=== PATIENT | male | born 1995 | race Caucasian/White ===

== ENCOUNTER 2017-10-29 12:33 | Emergency (ER) | payer OTHER ==
[2017-10-29] MEDS ORDERED: Ondansetron 4 MG/2 ML SDV IVPUSH ONE ×2 (12:54→13:58)
[2017-10-29] MEDS ORDERED: Sodium Chloride 0.9% 2.5 ML Syringe FLUSH PRN (12:54)
[2017-10-29] MEDS ORDERED: Morphine 2 MG/ML Syringe IVPUSH ONE ×3 (12:54→14:02)
[2017-10-29] MEDS ORDERED: Sodium Chloride 0.9% 10 ML Syringe FLUSH PRN (12:54)
--- NOTE | 2017-10-29 13:00 | EDM.PDOC ---
ED HPI GENERAL MEDICAL PROBLEM - General Chief Complaint: ENT Problem Stated Complaint: JAW PAIN Time Seen by Provider: 10/29/17 12:41 Source of Information: Reports: Patient History Limitations: Reports: No Limitations - History of Present Illness INITIAL COMMENTS - FREE TEXT/NARRATIVE: History of present illness: []Patient looked in the snow on October 27 in his left jaw when his mouth was open. He has not been able to open his mouth since. He has had surgery on the left jaw with plate and screws placed in the past. He denies any loss of consciousness, neck pain or any other injuries. Review of systems: As per history of present illness and below otherwise all systems reviewed and negative. Past medical history: As per history of present illness and as reviewed below otherwise noncontributory. Surgical history: As per history of present illness and as reviewed below otherwise noncontributory. Social history: No reported history of drug or alcohol abuse. Family history: As per history of present illness and as reviewed below otherwise noncontributory. Physical exam: General: Well developed, well nourished in NAD HEENT: Atraumatic, patient has a scar over his left cheek and swelling in this area he is unable to open his mouth fully, pupils reactive, negative for conjunctival pallor or scleral icterus, mucous membranes moist, throat clear, neck supple, nontender, trachea midline. Lungs: Clear to auscultation, breath sounds equal bilaterally, chest nontender. Heart: S1S2, regular, negative for clicks, rubs, or JVD. Abdomen: Soft, nondistended, nontender. Negative for masses or hepatosplenomegaly. Negative for costovertebral tenderness. Pelvis: Stable nontender. Genitourinary: Deferred. Rectal: Deferred. Extremities: Small abrasion on right proximal forearm, negative for cords or calf pain. Neurovascular unremarkable. Neuro: Awake, alert, oriented. Cranial nerves II through XII unremarkable. Cerebellum unremarkable. Motor and sensory unremarkable throughout. Exam nonfocal. Diagnostics: []CT shows upper and lower left mandibular fractures Therapeutics: [] Impression: []Mandibular fracture Plan: []Follow-up with Dr. Tim Falcon at [facility] Tomorrow at noon, plan to stay overnight and surgery will be scheduled for Monday. Amoxicillin 500 mg 3 times a day for one week, Peridex mouth rinse 3-4 times a day, saltwater rinse after meals. Definitive disposition and diagnosis as appropriate pending reevaluation and review of above. Left jaw Pain Score (Numeric/FACES): 8 - Related Data Allergies Allergy/AdvReac Type Severity Reaction Status Date / Time No Known Allergies Allergy Verified 10/29/17 13:03 Home Meds: Home Meds Amoxicillin 500 mg PO TID #21 capsule 10/29/17 [Rx] Chlorhexidine Gluconate [Peridex 0.12% Rinse] 15 ml .XX TID #500 cup 10/29/17 [ Rx] traMADol HCl [Tramadol HCl] 50 mg PO Q6H PRN #16 tablet 10/29/17 [Rx] ED ROS GENERAL - Review of Systems Review Of Systems: See Below (See history of present illness) ED EXAM, HEAD INJURY - Physical Exam Exam: See Below (See history of present illness) Course - Vital Signs Last Recorded V/S: Last Vital Signs Temp 98.0 F 10/29/17 13:04 Pulse 98 10/29/17 13:04 Resp 20 10/29/17 13:04 BP 154/94 H 10/29/17 13:04 Pulse Ox 98 10/29/17 13:04 - Orders/Labs/Meds Orders: Active Orders 24 hr Category Date Time Status Max Facial Sinus wo Cont [CT] Stat Exams 10/29/17 12:52 Taken Sodium Chloride 0.9% [Normal Saline] 1,000 ml Med 10/29/17 13:58 Active IV .Bolus Sodium Chloride 0.9% [Saline Flush] Med 10/29/17 12:54 Active 10 ml FLUSH ASDIRECTED PRN Sodium Chloride 0.9% [Saline Flush] Med 10/29/17 12:54 Active 2.5 ml FLUSH ASDIRECTED PRN ceFAZolin [Ancef] 1 gm Med 10/29/17 14:28 Ordered Premix Bag 1 bag IV ONETIME Saline Lock Insert [OM.PC] Stat Oth 10/29/17 12:54 Ordered Medication Orders Sodium Chloride (Normal Saline) 1,000 mls @ 999 mls/hr IV .Bolus ONE Stop: 10/29/17 14:58 Last Admin: 10/29/17 14:14 Dose: 999 mls/hr Cefazolin Sodium/Dextrose 1 gm (/ Premix) 50 mls @ 100 mls/hr IV ONETIME ONE Stop: 10/29/17 14:57 Last Admin: 10/29/17 14:35 Dose: 100 mls/hr Sodium Chloride (Saline Flush) 10 ml FLUSH ASDIRECTED PRN PRN Reason: Keep Vein Open Sodium Chloride (Saline Flush) 2.5 ml FLUSH ASDIRECTED PRN PRN Reason: Keep Vein Open Meds: Medications Generic Name Dose Route Start Last Admin Trade Name Freq PRN Reason Stop Dose Admin Sodium Chloride 1,000 mls @ 999 mls/hr 10/29/17 13:58 10/29/17 14:14 Normal Saline IV 10/29/17 14:58 999 mls/hr .Bolus ONE Administration Cefazolin Sodium/Dextrose 1 gm 50 mls @ 100 mls/hr 10/29/17 14:28 10/29/17 14 :35 / Premix IV 10/29/17 14:57 100 mls/hr ONETIME ONE Administration Sodium Chloride 10 ml 10/29/17 12:54 Saline Flush FLUSH ASDIRECTED PRN Keep Vein Open Sodium Chloride 2.5 ml 10/29/17 12:54 Saline Flush FLUSH ASDIRECTED PRN Keep Vein Open Discontinued Medications Generic Name Dose Route Start Last Admin Trade Name Freq PRN Reason Stop Dose Admin Diazepam 2.5 mg 10/29/17 12:54 10/29/17 13:01 Valium IV 10/29/17 12:55 2.5 mg ONETIME ONE Administration Morphine Sulfate 2 mg 10/29/17 12:54 10/29/17 13:01 Morphine IVPUSH 10/29/17 12:55 2 mg ONETIME ONE Administration Morphine Sulfate 2 mg 10/29/17 13:58 10/29/17 14:06 Morphine IVPUSH 10/29/17 13:59 Not Given ONETIME ONE Morphine Sulfate 2 mg 10/29/17 14:02 10/29/17 14:06 Morphine IVPUSH 10/29/17 14:03 Not Given ONETIME ONE Morphine Sulfate 2 mg 10/29/17 14:15 10/29/17 14:12 Morphine IVPUSH 10/29/17 14:16 2 mg ONETIME ONE Administration Ondansetron HCl 4 mg 10/29/17 12:54 10/29/17 13:01 Zofran IVPUSH 10/29/17 12:55 4 mg ONETIME ONE Administration Ondansetron HCl 4 mg 10/29/17 13:58 10/29/17 14:10 Zofran IVPUSH 10/29/17 13:59 4 mg ONETIME ONE Administration Departure - Departure Time of Disposition: 14:31 Disposition: Home, Self-Care 01 Condition: Good Clinical Impression: Mandible fracture Qualifiers: Encounter type: initial encounter Fracture type: closed Mandible location: body Laterality: left Qualified Code(s): S02.602A - Fracture of unspecified part of body of left mandible, initial encounter for closed fracture - Discharge Information Prescriptions: Amoxicillin 500 mg PO TID #21 capsule Chlorhexidine Gluconate [Peridex 0.12% Rinse] 15 ml .XX TID #500 cup traMADol HCl [Tramadol HCl] 50 mg PO Q6H PRN #16 tablet PRN Reason: Pain Referrals: PCP,None [Primary Care Provider] - Forms: ED Department Discharge Additional Instructions: The following information is given to patients seen in the emergency department who are being discharged to home. This information is to outline your options for follow-up care. We provide all patients seen in our emergency department with a follow-up referral. The need for follow-up, as well as the timing and circumstances, are variable depending upon the specifics of your emergency department visit. If you don't have a primary care physician on staff, we will provide you with a referral. We always advise you to contact your personal physician following an emergency department visit to inform them of the circumstance of the visit and for follow-up with them and/or the need for any referrals to a consulting specialist. The emergency department will also refer you to a specialist when appropriate. This referral assures that you have the opportunity for follow-up care with a specialist. All of these measure are taken in an effort to provide you with optimal care, which includes your follow-up. Under all circumstances we always encourage you to contact your private physician who remains a resource for coordinating your care. When calling for follow-up care, please make the office aware that this follow-up is from your recent emergency room visit. If for any reason you are refused follow-up, please contact the [facility] Emergency Department at and asked to speak to the emergency department charge nurse. Please follow these directions: 1. Amoxicillin 500 mg 3 times a day for one week 2. Peridex mouth rinse 3-4 times a day 3. Salt water rinses after meals 4 .Full liquid diet only 5. You have an appointment with Dr. Tim Falcon, tomorrow, Monday at noon. Please call his office at 9 AM at [phone] to confirm appointment 6. Bring a copy of your CT scan on disc to your appointment - My Orders Last 24 Hours: My Active Orders 10/29/17 12:52 Max Facial Sinus wo Cont [CT] Stat 10/29/17 12:54 Sodium Chloride 0.9% [Saline Flush] 10 ml FLUSH ASDIRECTED PRN Sodium Chloride 0.9% [Saline Flush] 2.5 ml FLUSH ASDIRECTED PRN Saline Lock Insert [OM.PC] Stat 10/29/17 13:58 Sodium Chloride 0.9% [Normal Saline] 1,000 ml IV .Bolus 10/29/17 14:28 ceFAZolin [Ancef] 1 gm Premix Bag 1 bag IV ONETIME - Assessment/Plan Last 24 Hours: My Active Orders 10/29/17 12:52 Max Facial Sinus wo Cont [CT] Stat 10/29/17 12:54 Sodium Chloride 0.9% [Saline Flush] 10 ml FLUSH ASDIRECTED PRN Sodium Chloride 0.9% [Saline Flush] 2.5 ml FLUSH ASDIRECTED PRN Saline Lock Insert [OM.PC] Stat 10/29/17 13:58 Sodium Chloride 0.9% [Normal Saline] 1,000 ml IV .Bolus 10/29/17 14:28 ceFAZolin [Ancef] 1 gm Premix Bag 1 bag IV ONETIME
[2017-10-29] MEDS ORDERED: Sodium Chloride 0.9% 1,000 ML IV ONE (13:58)
[2017-10-29] MEDS ORDERED: Morphine 4 MG/ML Syringe IVPUSH ONE (14:15)
[2017-10-29] MEDS ORDERED: ceFAZolin 1 GM in Premix Bag 1 BAG IV ONE (14:28)
--- NOTE | 2017-10-30 15:51 | CT ---
EXAM DATE: 10/29/17 PATIENT'S AGE: 22 Patient: ASHLEY KNIGHT Facility: [place], [place] Site . Site : 1995 Study: CT Facial WO CONT [id number] 1:27:47 PM Ordering Physician: Nash Hurst Final Report: INDICATION: Fell on ice today and hit chin. Pain and swelling left-sided jaw. History of surgery with plates and region of left ear. Dislocated left jaw TECHNIQUE: Noncontrast CT facial bones including axial, coronal and sagittal images. FINDINGS: Nondisplaced acute oblique fracture coursing obliquely through the left mid and upper mandible best seen on image 72 of series 207. Mildly displaced acute fracture involving the left lower mandible just to left of midline which extends superiorly into the location of the left lower frontal teeth. Postsurgical changes in the left mastoid air cells with metallic high density in this region. There is opacification and sclerosis of the left mastoid air cells likely related to chronic inflammation. Fluid and soft tissue thickening involving the middle ear with likely related inflammation. Cortical irregularity and surrounding ossific densities involving the left zygoma with plate and screw fixation likely related prior trauma and surgery. There is a irregular defect in the left temporal calvarium consistent with a prior craniectomy and or previous trauma. No other facial fractures. Small amounts of fluid and mucosal thickening throughout the paranasal sinuses with some nodularity in the right maxillary sinus with either related to a polyp or retention cyst. Encephalomalacia in the left temporal lobe likely postsurgical or posttraumatic. Small lymph nodes diffusely in the neck should be reactive. Remainder negative. IMPRESSION: 1. Two acute fractures in the left mandible one in the mid and upper mandible which is oblique and nondisplaced and the other fracture is in the lower mandible just to the left of midline which is mildly displaced and extends superiorly between 2 frontal teeth. 2. Postsurgical changes involving the left temporal calvarium, mastoid air cells , and left zygoma with either posttraumatic and/or postsurgical deformity of these areas of the calvarium and the bones. Fluid and soft tissue opacity within left mastoid air cells with sclerosis likely related to ongoing on chronic inflammation. Inflammatory changes in the left middle ear. 3. Encephalomalacia left temporal lobe likely related prior trauma or surgery. 4. Mild sinusitis. Please note that all CT scans at this facility use dose modulation, iterative reconstruction, and/or weight-based dosing when appropriate to reduce radiation dose to as low as reasonably achievable. Dictated by Chuckie Herman MD @ Oct 29 2017 1:34PM (Electronic Signature) Report Signed by Proxy. MTDD
== END 2017-10-29 15:09 | disposition home or self-care (01) ==
LOC: MW.ED 12:33
DX: S02.602A Fracture of unspecified part of body of left mandible, initial encounter for closed fracture (principal); J32.9 Chronic sinusitis, unspecified; Z98.890 Other specified postprocedural states; X58.XXXA Exposure to other specified factors, initial encounter
CPT/HCPCS: 70486; 96365; 96375; 96376; 99283; A9270; J0690; J2270; J2405; J7040; 99282